=== PATIENT | male | born 1985 | race Caucasian/White ===

== ENCOUNTER 2020-04-27 15:18 | Emergency (ER) | payer MEDICAID ==
[~2020-04-27] VITALS: Ht 172.7 cm; Wt 68.2 kg
[2020-04-27 17:35] LABS: BASOPHILS % (AUTO) 0.2 % (0.0-2.0); EOSINOPHILS % (AUTO) 0.4 % (1.0-6.0); HEMATOCRIT 49.7 % (41-53); HEMOGLOBIN 16.4 g/dL (13.5-17.5); LYMPHOCYTES % (AUTO) 13.6 % (22.0-44.0); MEAN CORPUSCULAR HEMOGLOBIN 28.7 pg (26.0-34.0); MEAN CORPUSCULAR VOLUME 87 fL (80-100); MONOCYTES # (AUTO) 0.5 K/uL (0.1-1.0); MONOCYTES % (AUTO) 6.8 % (2.0-9.0); RED BLOOD CELL COUNT(AUTO) 5.73 MIL/uL (4.50-5.90); RED CELL DISTRIBUTION WIDTH 13.9 % (11.5-14.5)
[2020-04-27 17:39] LABS: PLATELET COUNT (AUTO) 209 K/uL (150-450)
[2020-04-27 17:43] LABS: ANION GAP 9 mmol/L (8-16); CALCIUM, TOTAL 10.1 mg/dL (8.8-10.5); CARBON DIOXIDE 30 mmol/L (22-29); CHLORIDE 104 mmol/L (98-107); CREATININE 1.07 mg/dL (0.60-1.30); GLOMERULAR FILTR. RATE CALC > 60 mL/min (>60); GLUCOSE,RANDOM 105 mg/dL (70-110); POTASSIUM 3.7 mmol/L (3.5-5.1); SODIUM SERUM 143 mmol/L (136-145); UREA NITROGEN, BLOOD 10 mg/dL (7-18)
[2020-04-27 17:53] LABS: SALICYLATE 1.8 mg/dL (2.8-20.0)
[2020-04-27 17:58] LABS: ALANINE AMINOTRANSFERASE 70 U/L (12-78); ALBUMIN 4.7 g/dL (3.4-5.0); ALKALINE PHOSPHATASE 89 U/L (46-116); ASPARTATE AMINOTRANSFERASE 42 U/L (15-37); BILIRUBIN,TOTAL 1.4 mg/dL (0.1-1.0); THYROID STIMULATING HORMONE 0.37 uIU/mL (0.36-3.74); TOTAL PROTEIN, SERUM 8.5 g/dL (6.4-8.2)
[2020-04-27 18:09] LABS: ACETAMINOPHEN < 2 mcg/mL (10-30)
[2020-04-27 18:20] VITALS: BP 142/77
== END 2020-04-27 19:14 | disposition home or self-care (01) ==
LOC: EMS 15:18
DX: T50.7X1A Poisoning by analeptics and opioid receptor antagonists, accidental (unintentional), initial encounter (principal); F17.210 Nicotine dependence, cigarettes, uncomplicated; R04.0 Epistaxis; F11.20 Opioid dependence, uncomplicated; Y92.89 Other specified places as the place of occurrence of the external cause
CPT/HCPCS: 36415; 71045; 80053; 82962; 84443; 85025; 93005; 99285; G0480; G0481